=== PATIENT | female | born 2000 | race Caucasian/White ===

== ENCOUNTER 2020-01-22 07:41 | Outpatient (REF) | payer OTHER, SELFPAY | END 2020-01-22 07:42 | disposition home or self-care (01) | LOC: HO.LAB 07:41 | PROVIDERS: PCP Pediatrics; Visit Provider Internal Medicine | DX: Z20.828 Contact with and (suspected) exposure to other viral communicable diseases (principal) | CPT/HCPCS: C9803; U0003 ==

== ENCOUNTER 2021-04-21 08:40 | Outpatient (REF) | payer BC, SELFPAY ==
[2021-04-22 09:26] LABS: CT PCR NOT DETECTED (Not Detect.); NG PCR NOT DETECTED (Not Detect.)
[2021-04-22 10:07] LABS: BV Int Neg Control Negative (Negative); BV Int Pos Control Positive (Positive)
== END 2021-04-21 08:41 | disposition home or self-care (01) ==
LOC: HO.LAB 08:40
PROVIDERS: Visit Provider Advanced Practice Midwife
DX: Z01.411 Encounter for gynecological examination (general) (routine) with abnormal findings (principal); Z20.2 Contact with and (suspected) exposure to infections with a predominantly sexual mode of transmission; N63.0 Unspecified lump in unspecified breast; Z87.42 Personal history of other diseases of the female genital tract
CPT/HCPCS: 87480; 87491; 87510; 87591; 87660; 88142

== ENCOUNTER 2021-05-05 14:16 | Outpatient (REF) | payer BC, OTHER, SELFPAY ==
--- NOTE | ~2021-05-05 | US_ITS ---
EXAMINATION: US BREAST COMPLETE, LEFT CLINICAL INFORMATION: Bilateral breast lumps. COMPARISON: None TECHNIQUE: Targeted high-resolution alcazar-scale sonography of the left breast was performed within the upper outer quadrant and within the lower quadrant. FINDINGS: No ultrasound abnormality was identified within the lower quadrant. Evaluation of the upper outer quadrant 2 o'clock position 10 cm from the nipple, where a palpable abnormality is present, there is an approximately 1.9 x 1.3 x 1.0 cm heterogeneous echotexture lesion which appears to have a capsule around it. There is a 1 small area of peripheral vascularity. There is increased through sound transmission without distal sound shadowing. The lesion is wider than it is tall. The lesion has the appearance of a possible hamartoma. Six-month followup left breast ultrasound is recommended. US/US breast LT complete IMPRESSION: Left breast lesion 2 o'clock position approximately 10 cm from the nipple, appears to be a heterogeneous echotexture lesion with some regions of increased echogenicity within it and with possible peripheral capsule. No distal sound shadowing appreciated. Six-month followup left breast ultrasound recommended. FINAL ASSESSMENT: BI-RADS 3: Probably Benign. RECOMMENDATIONS: Six-month followup left breast ultrasound.
--- NOTE | ~2021-05-05 | US_ITS ---
EXAMINATION: US DIAGNOSTIC ULTRASOUND BREAST, RIGHT CLINICAL INFORMATION: Lump upper outer quadrant. COMPARISON: None. TECHNIQUE: Ultrasound of the breast is performed with real-time alcazar scale imaging and color Doppler. FINDINGS: There is no focal suspicious finding. There is no solid mass, architectural abnormality, duct ectasia, or edema in the soft tissue planes. Results are discussed with the patient at time of visit. US/US breast RT complete IMPRESSION: No right breast ultrasound abnormality appreciated. ASSESSMENT: BI-RADS 1: Negative RECOMMENDATION: Diagnostic 6 month follow-up left breast ultrasound as described in left ultrasound report. This patient's information was entered into a reminder system with a target due date for their next mammogram.
== END 2021-05-05 14:17 | disposition home or self-care (01) ==
LOC: HO.MAMMO 14:16
PROVIDERS: Visit Provider Advanced Practice Midwife
DX: N63.21 Unspecified lump in the left breast, upper outer quadrant (principal); N63.11 Unspecified lump in the right breast, upper outer quadrant
CPT/HCPCS: 76641